=== PATIENT | female | born 1945 | race Caucasian/White ===

== ENCOUNTER 2023-03-30 10:39 | Inpatient (IN) | payer OTHER ==
[~2023-03-30] VITALS: Ht 167.6 cm; Wt 73.9 kg
[2023-03-30 10:41] VITALS: BP 122/64
--- NOTE | 2023-03-30 11:09 | NUR ---
ASSUMED PATIENT CARE, NURSING ASSESSMENT COMPLETED. SEEN AND EVALUATED BY MATTIE Marrero COMPLETED.
--- NOTE | 2023-03-30 11:15 | NUR ---
TO CT VIA [facility].
[2023-03-30 12:09] LABS: BASOPHILS # (AUTO) 0.1 K/uL (0.00-0.22); BASOPHILS % (AUTO) 0.7 % (0.0-2.0); EOSINOPHILS % (AUTO) 0.3 % (0.0-4.0); HEMATOCRIT 38.9 % (36-48); HEMOGLOBIN 13.5 g/dL (12.0-16.0); LYMPHOCYTES # (AUTO) 1.2 K/uL (2.5-16.5); LYMPHOCYTES % (AUTO) 9.8 % (20.5-51.1); MEAN CORPUSCULAR HEMOGLOBIN 33 pg (27-31); MEAN CORPUSCULAR HGB CONC 35 g/dL (33-37); MEAN CORPUSCULAR VOLUME 95.5 fL (80-94); MONOCYTES # (AUTO) 1.4 K/uL (0.8-1.0); MONOCYTES % (AUTO) 11.9 % (1.7-9.3); NEUTROPHILS # (AUTO) 9.4 K/uL (1.8-7.7); NEUTROPHILS % (AUTO) 77.3 % (42.2-75.2); PLATELET COUNT (AUTO) 142 K/uL (140-450); RED BLOOD CELL COUNT(AUTO) 4.08 MIL/uL (4.20-5.40); RED CELL DISTRIBUTION WIDTH 14.3 % (11.6-13.7); WHITE BLOOD COUNT (AUTO) 12.1 K/uL (4.8-10.8)
[2023-03-30 12:26] LABS: ANION GAP 12.9 (8-16); ASPARTATE AMINOTRANSFERASE 52 U/L (15-37); CARBON DIOXIDE 26.3 mmol/L (21-32); CHLORIDE 103 mmol/L (98-107); CREATININE 1.1 mg/dL (0.6-1.3); GLUCOSE 105 mg/dL (74-106); POTASSIUM 4.2 mmol/L (3.5-5.1); SODIUM SERUM 138 mmol/L (136-145); TOTAL BILIRUBIN 1.1 mg/dL (0.0-1.0); UREA NITROGEN, BLOOD 16 mg/dL (7-18)
[2023-03-30 15:04] LABS: APPEARANCE,URINE CLEAR (CLEAR); BILIRUBIN,URINE NEGATIVE (NEGATIVE); BLOOD, URINE 1+ (NEGATIVE); COLOR,URINE YELLOW (YELLOW); LEUKOCYTE ESTERASE ,URINE 2+ (NEGATIVE); NITRITE, URINE POSITIVE (NEGATIVE); PH,URINE 7.5 (5.0-9.0); UGLUCOSE NEGATIVE (NEGATIVE)
[2023-03-30 15:19] LABS: TRICHOMONAS,URINE None Seen /HPF (None Seen); YEAST,URINE None Seen /HPF (None Seen)
[2023-03-30] MEDS ORDERED: ERTAPENEM SODIUM 1,000 MG in NACL 0.9% 50 ML IV ONE (15:35)
[2023-03-30] MEDS ORDERED: ONDANSETRON 4 MG/2 ML VIAL IM/IVP PRN (15:55)
[2023-03-30] MEDS ORDERED: guaiFENesin DM 200/20 MG-10 ML 10 ML UDC PO PRN (15:55)
[2023-03-30] MEDS ORDERED: ACETAMINOPHEN 325 MG TAB PO PRN (15:55)
[2023-03-30] MEDS ORDERED: POTASSIUM CHLORIDE 10 MEQ TABER PO PRN (15:55)
[2023-03-30] MEDS ORDERED: DOCUSATE SODIUM 100 MG GELCAP PO PRN (15:55)
[2023-03-30] MEDS ORDERED: HYDROcodone/APAP 7.5/325 MG 1 TAB PO PRN (15:55)
[2023-03-30] MEDS ORDERED: ZOLPIDEM 5 MG TAB PO PRN (15:55)
[2023-03-30] MEDS ORDERED: GABA600T11 PO (16:49)
[2023-03-30] MEDS ORDERED: PRED5TAB7 PO (16:49)
--- NOTE | 2023-03-30 18:18 | NUR ---
Patient will be admitted to care of [facility]. Admited to TELEMETRY. Will go to [id number]. Belongings list completed. Report to JOVANNI.
--- NOTE | 2023-03-30 19:30 | NUR ---
RECEIVED PT FROM MORNING SHIFT NURSE. PT IS AOX4, BEDREST, ABLE TO VERBALIZE NEEDS AND ABLE TO FOLLOW COMMANDS. PT IS ON ROOM AIR AND ON REGULAR DIET. PT HAS IV ON LEFT AC GAUGE 22, SALINE LOCK. PT HAS THIN CLOSE BRUISE ON RIGHT ELBOW AND PT VAGINA/LABIA IS INFLAMED. PT DENIES PAIN. NO S/S OF RESPIRATORY DISTRESS NOTED. PT WAS ORIENTED TO HOSPITAL/ROOM, CALL LIGHT AND BED BUTTON. ALL SAFETY MEASURES IMPLEMENTED. BED IN LOW POSITION, BED WHEELS ON LOCK AND CALL LIGHT WITHIN REACH.
[2023-03-30] MEDS: NACL 0.9% 1,000 ML IV SCH (20:51)
--- NOTE | 2023-03-30 20:52 | NUR ---
SCHEDULED AND PRESCRIBED MEDICATION WAS GIVEN TO PT PER MD ORDER. HANGED NS RUNNING AT 60ML/HR. ALL SAFETY MEASURES IMPLEMENTED. BED IN LOW POSITION, BED WHEELS ON LOCK AND CALL LIGHT WITHIN REACH.
--- NOTE | 2023-03-30 22:00 | NUR ---
CLEANED THE PT DUE TO PT POOP. CHANGED, ANGELIKA'S, LINENS, BLANKET AND GOWN. ALL SAFETY MEASURES IMPLEMENTED. BED IN LOW POSITION, BED WHEELS ON LOCK AND CALL LIGHT WITHIN REACH.
[2023-03-31] VITALS: BP 145/80
--- NOTE | 2023-03-31 | NUR ---
PT IS ON SLEEP. CHEST RISE AND FALL SYMMETRICALLY NOTED. RESPIRATION IS EVEN AND UNLABORED. ALL SAFETY MEASURES IMPLEMENTED. BED IN LOW POSITION, BED WHEELS ON LOCK AND CALL LIGHT WITHIN REACH.
--- NOTE | 2023-03-31 02:00 | NUR ---
CHECKED THE PT, STILL ON SLEEP. CHEST RISE AND FALL SYMMETRICALLY NOTED. RESPIRATION IS EVEN AND UNLABORED. ALL SAFETY MEASURES IMPLEMENTED. BED IN LOW POSITION, BED WHEELS ON LOCK AND CALL LIGHT WITHIN REACH.
[2023-03-31 04:02] VITALS: BP 135/82
--- NOTE | 2023-03-31 04:05 | NUR ---
MORNING CARE WAS DONE TO PT. CHANGED ANGELIKA'S, LINENS, BLANKET AND GOWN. ALL SAFETY MEASURES IMPLEMENTED. BED IN LOW POSITION, BED WHEELS ON LOCK AND CALL LIGHT WITHIN REACH.
[2023-03-31 07:08] LABS: BASOPHILS # (AUTO) 0.1 K/uL (0.00-0.22); BASOPHILS % (AUTO) 1.1 % (0.0-2.0); EOSINOPHILS # (AUTO) 0.1 K/uL (0-0.4); EOSINOPHILS % (AUTO) 1.5 % (0.0-4.0); HEMATOCRIT 37.7 % (36-48); HEMOGLOBIN 13.2 g/dL (12.0-16.0); LYMPHOCYTES # (AUTO) 1.8 K/uL (2.5-16.5); LYMPHOCYTES % (AUTO) 26.8 % (20.5-51.1); MEAN CORPUSCULAR HEMOGLOBIN 33 pg (27-31); MEAN CORPUSCULAR HGB CONC 35 g/dL (33-37); MEAN CORPUSCULAR VOLUME 94.9 fL (80-94); MONOCYTES % (AUTO) 15.1 % (1.7-9.3); NEUTROPHILS # (AUTO) 3.7 K/uL (1.8-7.7); NEUTROPHILS % (AUTO) 55.5 % (42.2-75.2); PLATELET COUNT (AUTO) 133 K/uL (140-450); RED BLOOD CELL COUNT(AUTO) 3.98 MIL/uL (4.20-5.40); RED CELL DISTRIBUTION WIDTH 13.8 % (11.6-13.7); WHITE BLOOD COUNT (AUTO) 6.6 K/uL (4.8-10.8)
--- NOTE | 2023-03-31 07:09 | NUR ---
PT IS STABLE. ENDORSED PT TO MORNING SHIFT NURSE FOR CONTINUITY OF CARE.
[2023-03-31 07:14] LABS: CARBON DIOXIDE 23.5 mmol/L (21-32); CHLORIDE 107 mmol/L (98-107); GLUCOSE 81 mg/dL (74-106); POTASSIUM 3.5 mmol/L (3.5-5.1); SODIUM SERUM 138 mmol/L (136-145); UREA NITROGEN, BLOOD 14 mg/dL (7-18)
--- NOTE | 2023-03-31 07:30 | NUR ---
RECEIVED REPORT FROM PLANT TECHNICAL SPECIALIST NURSE. POC DISCUSSED. PT CURRENTLY RESTING WITH CHEST RISING AND FALLING. NO ACUTE S/S OF DISTRESS. ALL SAFETY MEASURES IN PLACE. CALL LIGHT WITHIN REACH.
[2023-03-31 08:00] VITALS: BP 132/58
[2023-03-31] MEDS: NACL 0.9% 1,000 ML IV SCH (08:35)
[2023-03-31] MEDS: GABAPENTIN 300 MG CAP PO SCH ×3 (09:00→17:47)
[2023-03-31] MEDS ORDERED: GABAPENTIN 100 MG CAP PO SCH (09:00)
[2023-03-31] MEDS: predniSONE 5 MG TAB PO SCH (09:59)
[2023-03-31] MEDS: ERTAPENEM SODIUM 1,000 MG in NACL 0.9% 50 ML IV SCH (09:59)
[2023-03-31] MEDS: PANTOPRAZOLE 40 MG TABEC PO SCH (10:00)
[2023-03-31 12:00] VITALS: BP 130/61
--- NOTE | 2023-03-31 14:00 | NUR ---
PT SPOUSE AT BEDSIDE. REQUESTED PT TO HELP PT GET UP AND WALK AROUND. INFORMED PT AN SPOUSE THAT PT CONSULT HAS ALREADY BEEN REQUESTED AND IS CURRENTLY PENDING.
[2023-03-31 16:00] VITALS: BP 131/59
[2023-03-31 20:00] VITALS: BP 125/60
--- NOTE | 2023-03-31 22:00 | NUR ---
P HAS WET DIAPER , WILL CLEAN UP , NO COMPLAIN MADE , CALL LIGHT WITHIN REACH .
[2023-04-01] VITALS: BP 122/61
--- NOTE | 2023-04-01 | NUR ---
SLEEPING , BUT EASILY AROUSABLE BY SOUNDS , NO COMPALIN MADE , CALL LIGHT WITHIN REACH .
--- NOTE | 2023-04-01 01:00 | NUR ---
HIT THE CALL LIGHT- PT HAS DIAPER WET - WILL CLEAN UP .
[2023-04-01 04:00] VITALS: BP 121/63
--- NOTE | 2023-04-01 04:00 | NUR ---
rounds , no complain made .
[2023-04-01] MEDS: NACL 0.9% 1,000 ML IV SCH (05:20)
[2023-04-01 06:55] LABS: ANION GAP 10.9 (8-16); BASOPHILS # (AUTO) 0.1 K/uL (0.00-0.22); BASOPHILS % (AUTO) 1.1 % (0.0-2.0); CARBON DIOXIDE 23.9 mmol/L (21-32); CHLORIDE 109 mmol/L (98-107); CREATININE 0.9 mg/dL (0.6-1.3); EOSINOPHILS # (AUTO) 0.2 K/uL (0-0.4); EOSINOPHILS % (AUTO) 2.9 % (0.0-4.0); GLUCOSE 78 mg/dL (74-106); HEMATOCRIT 37.3 % (36-48); LYMPHOCYTES # (AUTO) 2.8 K/uL (2.5-16.5); LYMPHOCYTES % (AUTO) 43.4 % (20.5-51.1); MEAN CORPUSCULAR HEMOGLOBIN 33 pg (27-31); MEAN CORPUSCULAR HGB CONC 35 g/dL (33-37); MEAN CORPUSCULAR VOLUME 95.1 fL (80-94); MONOCYTES # (AUTO) 0.8 K/uL (0.8-1.0); MONOCYTES % (AUTO) 13.3 % (1.7-9.3); NEUTROPHILS # (AUTO) 2.5 K/uL (1.8-7.7); NEUTROPHILS % (AUTO) 39.3 % (42.2-75.2); PLATELET COUNT (AUTO) 132 K/uL (140-450); POTASSIUM 3.8 mmol/L (3.5-5.1); RED BLOOD CELL COUNT(AUTO) 3.92 MIL/uL (4.20-5.40); RED CELL DISTRIBUTION WIDTH 13.9 % (11.6-13.7); SODIUM SERUM 140 mmol/L (136-145); UREA NITROGEN, BLOOD 17 mg/dL (7-18); WHITE BLOOD COUNT (AUTO) 6.3 K/uL (4.8-10.8)
--- NOTE | 2023-04-01 07:10 | NUR ---
RECEIVED REPORT FROM RADIOLOGIC TECHNICIAN FOR CONTINUITY OF CARE. INITIAL ASSESSMENT DONE. ALERT AND AND ORIENTED X 4. RESP. EVEN AND UNLABORED. ON ROOM AIR. IVF INFUSING WELL. NO C/O PAIN OR DISCOMFORT. CALL LIGHT KEPT WITHIN REACH. WILL CONTINUE TO MONITOR. PT MONITOR CLOSELY.
[2023-04-01 08:00] VITALS: BP 157/70
--- NOTE | 2023-04-01 08:48 | NUR ---
PATIENT HAS BEEN SCREENED AND CATEGORIZED LOW NUTRITION RISK. PATIENT WILL BE SEEN WITHIN 7 DAYS OF ADMISSION. 04/06/[address]
[2023-04-01] MEDS: predniSONE 5 MG TAB PO SCH (09:17)
[2023-04-01] MEDS: PANTOPRAZOLE 40 MG TABEC PO SCH (09:17)
[2023-04-01] MEDS: GABAPENTIN 300 MG CAP PO SCH ×2 (09:18→13:22)
--- NOTE | 2023-04-01 09:18 | NUR ---
SCHEDULED MEDICATIONS GIVEN. TOLERATED WELL.
[2023-04-01] MEDS: ERTAPENEM SODIUM 1,000 MG in NACL 0.9% 50 ML IV SCH (09:46)
--- NOTE | 2023-04-01 09:46 | NUR ---
INVANZ IV GIVEN BY PADMINI LARA. TOLERATED WELL.
[2023-04-01 12:00] VITALS: BP 157/70
--- NOTE | 2023-04-01 13:22 | NUR ---
SCHEDULED GABAPENTIN PO WAS GIVEN. TOLERATED WELL.
[2023-04-01] MEDS ORDERED: NITR100C15 PO ×2 (13:38→14:21)
--- NOTE | 2023-04-01 13:50 | NUR ---
SEEN BY DR. LIGHT.
[2023-04-01] MEDS ORDERED: NITR100C7 PO (14:24)
--- NOTE | 2023-04-01 15:05 | NUR ---
PT LEFT. DISCHARGE TO HOME. TRANSPORTED BY PRIVATE VEHICLE PER WHEELCHAIR. ACCOMPANIED BY HER . ALERT AND ORIENTED X 4. RESP. EVEN AND UNLABORED. ID BAND AND IV REMOVED. DISCHARGE PAPERWORKS SIGNED AND DISCUSS BY PT. SKIN INTACT. NO C/O PAIN OR DISCOMFORT. REMAINS STABLE.
== END 2023-04-01 15:05 | disposition home or self-care (01) | DRG 872 ==
LOC: MED 10:39 → MTU 15:56
PROVIDERS: ADMIT Student in an Organized Health Care Education/Training Program; ATTEND Student in an Organized Health Care Education/Training Program
DX: A41.9 Sepsis, unspecified organism (principal); N39.0 Urinary tract infection, site not specified; E44.0 Moderate protein-calorie malnutrition; G61.81 Chronic inflammatory demyelinating polyneuritis; Z20.822 Contact with and (suspected) exposure to COVID-19; Z88.6 Allergy status to analgesic agent; Z88.1 Allergy status to other antibiotic agents; Z88.8 Allergy status to other drugs, medicaments and biological substances; Z79.899 Other long term (current) drug therapy; Z68.26 Body mass index [BMI] 26.0-26.9, adult
CPT/HCPCS: 36415; 70450; 71045; 80048; 80053; 81001; 83605; 85025; 87040; 87081; 87086; 97116; 97163-GP; 99285; J1335; J1644; J7512